=== PATIENT | male | born 2000 | race Caucasian/White ===

== ENCOUNTER 2023-09-12 15:29 | Emergency (ER) | payer SELFPAY ==
[~2023-09-12] VITALS: Ht 172.7 cm; Wt 86.4 kg
[2023-09-12 15:55] VITALS: BP 107/69; PULSE 62; TEMP 97.7
== END 2023-09-12 17:03 | disposition home or self-care (01) ==
LOC: COL.ER 15:29
DX: B34.9 Viral infection, unspecified (principal); R11.10 Vomiting, unspecified

== ENCOUNTER 2023-09-15 22:38 | Emergency (ER) | payer SELFPAY ==
[~2023-09-15] VITALS: Ht 172.7 cm; Wt 86.4 kg
[2023-09-15 22:42] VITALS: TEMP 97.8
[2023-09-15] MEDS ORDERED: Ondansetron 4 MG/2 ML VIAL IV ONE (23:00)
[2023-09-15] MEDS ORDERED: NS 1,000 ML IV ONE (23:00)
[2023-09-15 23:13] LABS: BASO % 0.3 % (0.0-2.0); EOS # 0.1 K/mm3 (0.0-0.7); EOS % 1.9 % (0.0-4.0); GRAN # 2.7 K/mm3 (1.4-6.5); GRAN % 45.7 % (42.2-75.2); HEMATOCRIT 41.3 % (42.0-52.0); HEMOGLOBIN 14.5 g/dl (13.5-18.0); LYMPH # 2.6 K/mm3 (1.2-3.4); LYMPH % 43.9 % (20.0-51.0); MEAN CELL VOLUME 88 fl (80.0-100.0); MEAN CORPUSCULAR HEMOGLOBIN 31 pg (27-31); MEAN CORPUSCULAR HGB CONC 35 g/dl (33.0-37.0); MEAN PLATELET VOLUME 9.2 fl (7.4-10.4); MONO # 0.5 K/mm3 (0.1-0.6); MONO % 7.9 % (1.7-9.3); PLATELET COUNT 216 K/mm3 (130-400); REDCELL DISTRIBUTION WIDTH-CV 12.3 % (11.5-14.5)
[2023-09-15 23:30] LABS: ALBUMIN 3.7 g/dL (3.5-5.0); BILIRUBIN,TOTAL 0.4 mg/dL (0.2-1.2); CALCIUM 9.4 mg/dL (8.4-10.2); CREATININE, serum 1.04 mg/dL (0.72-1.25); POTASSIUM 3.9 mEq/L (3.5-4.5); TOTAL PROTEIN 6.9 g/dl (6.2-8.1)
[2023-09-16] MEDS ORDERED: ZOFRAN ODT4 MG PO (00:45)
[2023-09-16 00:56] VITALS: BP 126/75; PULSE 61
== END 2023-09-16 00:56 | disposition home or self-care (01) ==
LOC: COL.ER 22:38
PROVIDERS: Nurse Practitioner Primary Care
DX: A08.4 Viral intestinal infection, unspecified (principal); F17.290 Nicotine dependence, other tobacco product, uncomplicated
CPT/HCPCS: J2405; J7030